=== PATIENT | male | born 1990 | race Caucasian/White ===

== ENCOUNTER 2017-10-15 15:05 | Inpatient (IN) | payer OTHER ==
[~2017-10-15] VITALS: Ht 182.8 cm; Wt 70.8 kg
[~2017-10-15 15:05] MED LIST: AMBIEN PO; AMBIEN10 M1 PO; AMOXICILLIN500 MG PO; ANAPROX DS550 MG PO; ATARAX,VISTARIL50 MG PO; ATARAX25 MG PO; B12,B-12,B 12500 MC1 PO; BACTRIM DS 8001 TA1 PO; BACTROBAN22 TP; BUSPAR10 MG PO; CARBIDOPA/LEVOD1 TA1 PO; CELEXA20 MG PO; CHLORDIAZEPOXID25 M1 PO; COUMADIN2 M1 PO; COUMADIN5 M2 PO; COUMADIN6 M2 PO; Catapres-Tts 10.1 MG PO; Coumadin10 MG PO; Coumadin5 MG PO; DICYCLOMINE HCL20 MG PO; DIGOXIN; DIGOXIN0.25 MG PO; FLONASE 0.05% 121 EA NAS; IRON; IRON TABLETS325 MG PO; KCL; KCL PO; KEFLEX500 MG PO; LIBRIUM25 MG PO; LISINOPRIL5 MG PO; LOPRESSOR; LOPRESSOR25 MG PO; LOPRESSOR50 MG PO; LOVENOX120 MG/0.8 SC; LOVENOX80 MG/0.8 SC; Lopressor25 MG PO; METHOCARBAMOL750 M1 PO; MOTRIN800 MG PO; MULTIPLE VITAMI1 CAP PO; MULTIVITAMIN1 CTB PO; SEPTRA DS 800 M1 TAB PO; SUBUTEX8 M1 SL; Septra Ds 800 M1 TAB PO; TORADOL10 MG PO; VIBRAMYCIN100 MG PO; VICODIN ES 7501 TA1 PO; VICODIN ES 7501 TAB PO; VITAMIN; WARFARIN SODIUM1 MG PO; WARFARIN SODIUM6 MG PO; XANAX2 MG PO; ZESTRIL,PRINIVI20 MG PO; ZITHROMAX Z PA250 MG PO; ZOFRAN 4 MG ED2 TAB PO; Zofran4 MG PO
[2017-10-15 15:15] VITALS: BP 160/69
[2017-10-15 15:48] LABS: BILIRUBIN NEGATIVE (NEGATIVE); BLOOD NEGATIVE (NEGATIVE); CLARITY CLEAR (CLEAR); COLOR YELLOW (YELLOW); GLUCOSE NEGATIVE (NEGATIVE); KETONE NEGATIVE (NEGATIVE); LEUKO ESTERASE NEGATIVE (NEGATIVE); NITRITE NEGATIVE (NEGATIVE); PH 7.5 (5.0-9.0)
[2017-10-15 15:59] LABS: URINE AMPHETAMINES < 1000 (1000ng/ml); URINE BARBITURATES < 200 (200ng/ml); URINE BENZODIAZEPINES > 200 (200ng/ml); URINE CANNABINOIDS (THC) > 50 (50ng/ml); URINE COCAINE > 300 (300ng/ml); URINE METHADONE < 300 (300ng/ml); URINE OPIATES > 300 (300ng/ml)
[2017-10-15 16:01] LABS: BASO % 0.4 % (0.0-1.0); EOS # 0.4 10*3/uL (0.0-0.4); EOS % 3.8 % (1.0-4.0); HEMATOCRIT 36.7 % (42.0-52.0); HEMOGLOBIN 11.5 g/dl (14.0-18.0); LYMPH # 1.4 10*3/uL (1.3-4.4); MEAN CELL VOLUME 85.2 fl (80.0-94.0); MEAN CORPUSCULAR HGB 26.7 pg (27.0-31.0); MEAN CORPUSCULAR HGB CONC 31.3 g/dl (33.0-37.0); MEAN PLATELET VOLUME 10.7 fl (9.6-12.3); MONO # 0.6 10*3/uL (0.1-1.0); MONO % 5.9 % (3.0-9.0); NEUT # 7.3 10*3/uL (2.3-7.9); NEUT % 75.4 % (47.0-73.0); PLATELET COUNT AUTOMATED 350 10*3/uL (130-400); RED BLOOD COUNT 4.31 10*6/uL (4.50-5.90); WHITE BLOOD COUNT 9.7 10*3/uL (4.8-10.8)
[2017-10-15 16:07] LABS: URINE PHENCYCLIDINE < 25 (25ng/ml)
[2017-10-15 16:17] LABS: BACTERIA TRACE; HYALINE CAST 0-1; RBC 0-2 rbc/hpf (0-2); WAXY CAST 0-1
[2017-10-15 16:20] LABS: ALBUMIN 3.7 gm/dl (3.1-4.5); ALKALINE PHOSPHATASE 100 U/L (45-117); BUN 11 mg/dl (7-24); CHLORIDE 104 mmol/L (98-107); POTASSIUM 3.8 mmol/L (3.5-5.1); SGOT/AST 31 IU/L (3-35); SGPT/ALT 34 U/L (12-78); SODIUM 137 mmol/L (136-145); TOTAL PROTEIN 8.7 gm/dL (6.4-8.2)
[2017-10-15 16:24] LABS: ETHYL ALCOHOL < 3.0 mg/dl (<3)
[2017-10-15 16:56] LABS: INTERNATIONAL NORM RATIO 1.1 (2.0-3.5)
[2017-10-15 16:57] VITALS: BP 138/75
[2017-10-15] MEDS ORDERED: TOPROL XL25 MG PO (18:36)
[2017-10-15] MEDS ORDERED: AMIODARONE HYD200 MG PO (18:38)
[2017-10-15] MEDS ORDERED: VANCO 1.51.5 GM/500 IV (18:40)
[2017-10-15 20:00] VITALS: BP 117/72; BP 129/21
[2017-10-16] VITALS: BP 130/75
[2017-10-16 08:00] VITALS: BP 142/70
[2017-10-16 12:00] VITALS: BP 127/56
[2017-10-16 16:00] VITALS: BP 134/69
[2017-10-16 20:00] VITALS: BP 121/64
[2017-10-17] VITALS: BP 118/41
[2017-10-17 08:00] VITALS: BP 120/65
[2017-10-17 12:00] VITALS: BP 118/63
[2017-10-17 16:00] VITALS: BP 107/48
[2017-10-17 20:00] VITALS: BP 133/60
[2017-10-18 08:00] VITALS: BP 107/55
[2017-10-18] MEDS ORDERED: ROPINIROLE HYD0.5 MG PO (12:28)
[2017-10-18] MEDS ORDERED: ZOFRAN 4 MG ED2 TAB PO (12:28)
== END 2017-10-18 13:06 | disposition home or self-care (01) | DRG 896 ==
LOC: ED 15:05 → EDHOLD 15:43 → 5E 15:43
PROVIDERS: Internal Medicine Hospice and Palliative Medicine; Nurse Practitioner Family
DX: F11.23 Opioid dependence with withdrawal (principal); I33.0 Acute and subacute infective endocarditis; B19.20 Unspecified viral hepatitis C without hepatic coma; F13.10 Sedative, hypnotic or anxiolytic abuse, uncomplicated; F14.10 Cocaine abuse, uncomplicated; I49.3 Ventricular premature depolarization; F17.210 Nicotine dependence, cigarettes, uncomplicated; E78.5 Hyperlipidemia, unspecified; F41.9 Anxiety disorder, unspecified; G25.81 Restless legs syndrome; D86.9 Sarcoidosis, unspecified; D64.9 Anemia, unspecified; Z71.6 Tobacco abuse counseling; Z79.899 Other long term (current) drug therapy; Z95.2 Presence of prosthetic heart valve; Z83.3 Family history of diabetes mellitus; Z82.49 Family history of ischemic heart disease and other diseases of the circulatory system; Z80.8 Family history of malignant neoplasm of other organs or systems